=== PATIENT | female | born 1995 | race Caucasian/White ===

== ENCOUNTER 2020-10-03 08:50 | Inpatient (IN) | payer OTHER ==
[2020-10-03] MEDS: ELECTROLYTE-148 SOLN 1,000 ML IV SCH (09:45)
[2020-10-03 10:09] LABS: BASO % 0.2 % (0-2.0); EOS % 0.6 % (0-4.5); HEMATOCRIT 34.4 % (32.4-45.2); HEMOGLOBIN 11.7 GM/dL (10.7-15.3); LYMPH % 27.2 % (8-40); MCH 30.5 pg (25.7-33.7); MCHC 33.9 g/dl (32.0-36.0); MEAN CELL VOLUME 89.8 fl (80-96); MEAN PLT VOLUME 9.9 fl (7.5-11.1); MONO % 8.5 % (3.8-10.2); NEUT % 63.5 % (42.8-82.8); PLATELET COUNT 159 K/MM3 (134-434); RBC 3.83 M/mm3 (3.60-5.2); RDW 15.7 % (11.6-15.6); WHITE BLOOD COUNT 8.3 K/mm3 (4.0-10.0)
[2020-10-03 10:17] LABS: INR 0.88 (0.83-1.09); PROTHROMBIN TIME (PATIENT) 10.7 SEC (9.7-13.0)
[2020-10-03 10:20] LABS: ACTIVATED PTT 26.8 SECONDS (25.2-36.5)
[2020-10-03 10:27] LABS: CALCIUM 9.4 mg/dL (8.5-10.1)
[2020-10-03] MEDS ORDERED: BUTORPHANOL TARTRATE 1 MG/ML VIAL IVPB PRN (10:27)
[2020-10-03 10:28] LABS: BLOOD UREA NITROGEN 8.5 mg/dL (7-18)
[2020-10-03 10:31] LABS: CREATININE 0.6 mg/dL (0.55-1.3)
[2020-10-03 10:55] VITALS: BMI 30.2
[2020-10-03] MEDS ORDERED: DINOPROSTONE 10 MG VAGINAL SUPPOSITORY VG ONE (11:00)
[2020-10-03] MEDS ORDERED: PROMETHAZINE HCL 25 MG/1 ML VIAL IVPUSH ONE (18:05)
[2020-10-03] MEDS ORDERED: OXYTOCIN 30 UNITS in 0.9% NS 30 UNIT/500 ML INFUS.BAG IVPB SCH (18:15)
[2020-10-03] MEDS ORDERED: OXYTOCIN 30 UNITS in 0.9% NS 30 UNIT/500 ML INFUS.BAG IVPB ONE (19:42)
[2020-10-03] MEDS ORDERED: BUTORPHANOL TARTRATE 2 MG/ML VIAL ONE (19:58)
[2020-10-03] MEDS ORDERED: PROMETHAZINE HCL 25 MG/1 ML VIAL ONE (19:59)
[2020-10-03] MEDS ORDERED: FENTANYL/BUPIVACAINE/NS/PF - PCEA - 50 ML DISP.SYRIN EP ONE (21:12)
[2020-10-03] MEDS ORDERED: BUPIVACAINE HCL/PF 0.25% (2.5MG/ML) 10 ML VIAL ONE (21:32)
[2020-10-03] MEDS: FENTANYL/BUPIVACAINE/NS/PF - PCEA - 50 ML DISP.SYRIN EP SCH (21:55)
[2020-10-03] MEDS ORDERED: NALOXONE HCL 0.4 MG/ML VIAL IVPUSH PRN (22:46)
[2020-10-04] MEDS ORDERED: LIDOCAINE HCL 1% PRESERVATIVE FREE - 30ML VIAL ONE (00:38)
[2020-10-04] MEDS ORDERED: OXYTOCIN 20 UNITS in 0.9% NS 20 UNIT/1,000 ML INFUS.BAG IV ONE (00:38)
[2020-10-04] MEDS: ELECTROLYTE-148 SOLN 1,000 ML IV SCH (00:50)
[2020-10-04] MEDS ORDERED: FENTANYL/BUPIVACAINE/NS/PF - PCEA - 50 ML DISP.SYRIN EP ONE (02:23)
[2020-10-04] MEDS: FENTANYL/BUPIVACAINE/NS/PF - PCEA - 50 ML DISP.SYRIN EP SCH (02:25)
[2020-10-04] MEDS ORDERED: WITCH HAZEL 50% (TUCKS) 40 PAD/JAR PAD TP PRN (03:17)
[2020-10-04] MEDS ORDERED: METHYLERGONOVINE MALEATE 0.2 MG/1 ML AMP IM PRN (03:17)
[2020-10-04] MEDS ORDERED: BENZOCAINE 20% 57 GM BOTTLE TP PRN (03:17)
[2020-10-04] MEDS ORDERED: BISACODYL 10 MG SUPP.RECT PR PRN (03:17)
[2020-10-04] MEDS ORDERED: BENZOCAINE 28 GM HEMORRHOIDAL OINTMENT PR PRN (03:17)
[2020-10-04] MEDS ORDERED: OXYTOCIN 20 UNITS in 0.9% NS 20 UNIT/1,000 ML INFUS.BAG IV SCH (03:30)
[2020-10-04] MEDS ORDERED: ACETAMINOPHEN 1000 MG/100 ML VIAL (NON FORMULARY) IVPB PRN (07:32)
[2020-10-04] MEDS ORDERED: ceFAZolin 2 GRAM PREMIX BAG IVPB ONE (07:45)
[2020-10-04] MEDS ORDERED: ACETAMINOPHEN INJECTION 100 ML IVPB ONE (07:51)
[2020-10-04 08:13] LABS: CORD BASE EXCESS -9.9 mmol/L (0-2); CORD HCO3 17.8 mmHg (20-29); CORD PCO2 45.3 mmHg (30-78); CORD pH 7.211 (7.14-7.44)
[2020-10-04 08:16] LABS: CORD BASE EXCESS -10.3 mmol/L (0-2); CORD HCO3 15.9 mmHg (20-29); CORD PCO2 36.6 mmHg (30-78); CORD pH 7.257 (7.14-7.44)
[2020-10-04] MEDS ORDERED: PCA PUMP NR ONE (08:19)
[2020-10-04] MEDS: CEFAZOLIN 1 GM/D5W 1 GM/50 ML BAG IVPB SCH ×2 (15:32→22:13)
[2020-10-04] MEDS: valACYclovir HCL 500 MG TABLET (FP) PO SCH ×2 (15:32→22:13)
[2020-10-05] MEDS: CEFAZOLIN 1 GM/D5W 1 GM/50 ML BAG IVPB SCH (06:07)
[2020-10-05 08:34] LABS: BASO % 0.2 % (0-2.0); EOS % 0.6 % (0-4.5); HEMATOCRIT 30.1 % (32.4-45.2); HEMOGLOBIN 10.2 GM/dL (10.7-15.3); LYMPH % 27.8 % (8-40); MCH 30.2 pg (25.7-33.7); MCHC 33.8 g/dl (32.0-36.0); MEAN CELL VOLUME 89.5 fl (80-96); MEAN PLT VOLUME 9.4 fl (7.5-11.1); MONO % 5.4 % (3.8-10.2); PLATELET COUNT 153 K/MM3 (134-434); RBC 3.36 M/mm3 (3.60-5.2); RDW 16.2 % (11.6-15.6); WHITE BLOOD COUNT 13.3 K/mm3 (4.0-10.0)
[2020-10-05] MEDS: valACYclovir HCL 500 MG TABLET (FP) PO SCH ×2 (11:32→21:45)
[2020-10-05] MEDS: oxyCODONE HCL 5 MG TABLET PO PRN ×2 (13:17→20:18)
[2020-10-05] MEDS: ACETAMINOPHEN 325 MG TABLET (FP) PO PRN ×2 (13:18→20:18)
[2020-10-06] MEDS: ACETAMINOPHEN 325 MG TABLET (FP) PO PRN (08:38)
[2020-10-06 09:56] VITALS: BP 124/79; PULSE 75; TEMP 98.3
[2020-10-06] MEDS: valACYclovir HCL 500 MG TABLET (FP) PO SCH (11:30)
== END 2020-10-06 13:25 | disposition home or self-care (01) | DRG 560 ==
LOC: JLDR 08:50 → J3W 10-04 10:26
PROVIDERS: ADMIT Obstetrics & Gynecology; ATTEND Obstetrics & Gynecology
PROC: 3E0P7VZ Introduction of Hormone into Female Reproductive, Via Natural or Artificial Opening (ICD-10-PCS; principal; 2020-10-03)
PROC: 10E0XZZ Delivery of Products of Conception, External Approach (ICD-10-PCS; 2020-10-04)
PROC: 0W8NXZZ Division of Female Perineum, External Approach (ICD-10-PCS; 2020-10-04)
DX: O41.03X0 Oligohydramnios, third trimester, not applicable or unspecified (principal); O69.81X0 Labor and delivery complicated by cord around neck, without compression, not applicable or unspecified; Z3A.38 38 weeks gestation of pregnancy; Z37.0 Single live birth; Z86.19 Personal history of other infectious and parasitic diseases
CPT/HCPCS: 36415; 36600; 59409; 80048; 82803; 85025; 85610; 85730; 86780; 86850; 86900; 86901; J0131